=== PATIENT | male | born 1980 | race Caucasian/White ===

== ENCOUNTER 2021-01-21 08:29 | Emergency (ER) | payer MEDICAID ==
[~2021-01-21] VITALS: Ht 180.3 cm; Wt 90.7 kg
[2021-01-21] MEDS ORDERED: BENZTROPINE MESY1 MG PO (08:38)
[2021-01-21] MEDS ORDERED: DIVALPROEX SOD500 MG PO (08:41)
[2021-01-21] MEDS ORDERED: INDERAL LA60 MG PO (08:43)
[2021-01-21] MEDS ORDERED: CONSTULOSE10 GM/15 M PO ×2 (08:45→08:56)
[2021-01-21] MEDS ORDERED: LEXAPRO10 MG PO (08:46)
[2021-01-21] MEDS ORDERED: MELATONIN 3 MG1 EAC1 PO (08:48)
[2021-01-21] MEDS ORDERED: RISPERDAL1 MG PO ×2 (08:49→08:51)
[2021-01-21] MEDS ORDERED: TRAZODONE HCL50 MG PO (08:52)
[2021-01-21] MEDS ORDERED: AMANTADINE100 M1 PO (08:54)
[2021-01-21] MEDS ORDERED: BUSPIRONE HCL10 MG PO (08:55)
[2021-01-21] MEDS ORDERED: TYLENOL325 MG PO (08:57)
[2021-01-21] MEDS ORDERED: VALACYCLOVIR1000 MG PO (08:59)
[2021-01-21] MEDS ORDERED: VALACYCLOVIR1000 MG (09:00)
--- NOTE | 2021-01-22 07:43 | EKG ---
[facility] [address] [facility] [place] [address] Signed Normal sinus rhythm Normal ECG No previous ECGs available Confirmed by NAY SPENCER MD ([id number] on 01/22/2021 7:43:40 AM Electronically Signed By: NAY SPENCER MD 01/22/21 0743 PATIENT NAME: KATE COREAS Electrocardiogram DATE OF : 84 PHYSICIAN: NAY SPENCER MD REPORT #: [id number] REPORT IS CONFIDENTIAL AND NOT TO BE RELEASED WITHOUT AUTHORIZATION
== END 2021-01-21 14:16 | disposition short-term general hospital (02) ==
LOC: ED 08:29
DX: T85.09XA Other mechanical complication of ventricular intracranial (communicating) shunt, initial encounter (principal); Z20.822 Contact with and (suspected) exposure to COVID-19; G81.90 Hemiplegia, unspecified affecting unspecified side; R47.01 Aphasia; R41.82 Altered mental status, unspecified; H47.10 Unspecified papilledema; Z88.0 Allergy status to penicillin; Z88.2 Allergy status to sulfonamides; Z79.899 Other long term (current) drug therapy
CPT/HCPCS: 70250; 70450; 70496; 70498; 71045; 74018; 80048; 81001; 83735; 84484; 85025; 85610; 85730; 93005; 93010; 96374; 96376; 99285-25; C9803; J2060; U0003